=== PATIENT | male | born 1965 | race Caucasian/White ===

== ENCOUNTER → 2020-12-17 02:04 | Outpatient (CLI) | payer OTHER, SELFPAY ==
[2020-12-17 20:22] LABS: SARS-CoV-2 RNA PCR Negative
== END ==
PROVIDERS: PCP Family Medicine; Visit Provider Urology
DX: Z01.812 Encounter for preprocedural laboratory examination (principal); Z20.822 Contact with and (suspected) exposure to COVID-19
CPT/HCPCS: C9803; U0003; U0005

== ENCOUNTER 2020-12-17 08:38 | Outpatient (CLI) | payer OTHER, SELFPAY ==
--- NOTE | 2020-12-17 08:54 | ECG_ITS ---
Measurements Intervals [place] Rate: 84 P: 33 WA: 181 QRS: -4 QRSD: 149 T: 40 QT: 395 QTc: 467 Interpretive Statements SINUS RHYTHM ATRIAL PREMATURE COMPLEX RIGHT BUNDLE BRANCH BLOCK BASELINE WANDER- II, III, AVF ABNORMAL ECG Electronically Signed On 12-17-2020 10:09:54 CDT by Daniel Reza D.O.
[2020-12-17 09:25] LABS: Anion Gap 5 mmol/L (8-16); Blood Urea Nitrogen 11 mg/dL (9-20); Calcium 9.5 mg/dL (8.4-10.2); Carbon Dioxide 28 mmol/L (22-30); Chloride 104 mmol/L (98-107); Estimated Glomerular Filt Rate > 60; Glucose 220 mg/dL (75-110); Potassium 4.3 mmol/L (3.4-5.0); Sodium 137 mmol/L (137-145)
== END 2020-12-17 08:39 | disposition home or self-care (01) ==
PROVIDERS: PCP Family Medicine; Referring Provider Urology; Visit Provider Anesthesiology
DX: R31.0 Gross hematuria (principal); Z01.818 Encounter for other preprocedural examination; I45.10 Unspecified right bundle-branch block
CPT/HCPCS: 36415; 80048; 87086; 87088; 93005

== ENCOUNTER 2020-12-20 01:22 | Day surgery (SDC) | payer OTHER, SELFPAY ==
[2020-12-14 08:49] VITALS: BMI 45.6
--- NOTE | ~2020-12-20 | XR_ITS ---
EXAMINATION: XR retrograde pyelogram BI DATE: 12/20/2020 13:51 CDT INDICATION: Bilateral retrograde pyelogram TECHNIQUE: Multiple fluoroscopic images from a bilateral retrograde pyelogram are submitted for cesilia ashley FINDINGS: There is normal contrast opacification of the ureters and renal collecting systems bilatera lly. No definite filling defects or hydronephrosis identified. IMPRESSION: 1. Unremarkable bilateral retrograde pyelogram.. Correlate with real time procedural findings for de tails. Reviewed, dictated and finalized at location B. IMPRESSION: 1. Unremarkable bilateral retrograde pyelogram.. Correlate with real time proc edural findings for details.
--- NOTE | 2020-12-20 11:14 | WPDHPUPDATE1 ---
History and Physical Update Update Date/Time: 12/20/20 11:14 History and Physical has been reviewed, including an updated exam of the patient. There are NO changes in the patient's condition. Risks, benefits, and alternatives have been discussed and questions answered. Patient agrees to proceed with procedure.
[2020-12-20] MEDS: LACTATED RINGERS 1,000 ML 30 ML IV CONT (11:39)
--- NOTE | 2020-12-20 11:49 | WPDANESEPPF ---
Anes - Initial Pre Proc Eval Procedure: Operation Date: 12/20/20 13:30 Proposed Procedures p Cystoscopy, Bilateral Retrograde Pyelograms, Bilateral Ureteroscopy - Rip Mello MD Date/Time: 12/20/20 11:49 Surgeon: Rip Mello MD Pre Op Diagnosis: gross hematuria, overactive bladder Patient Data Age: 55 Gender: M Height: 5 ft 9 in Weight: 140 kg Allergies Allergy/AdvReac Type Severity Reaction Status Date / Time No Known Allergies Allergy Verified 12/14/20 08:51 Home Medications Medication Instructions Recorded Confirmed Type glimepiride 1 mg PO DAILY 12/14/20 12/14/20 History losartan 25 mg PO DAILY 12/14/20 12/14/20 History metformin 500 mg PO DAILY 12/14/20 12/14/20 History Laboratory Tests 12/20/20 11:46 POC Capillary Glucose Pending Patient hx anesthesia problems: none Family hx anesthesia problems: none [facility] Past Medical History Medical History (Updated 12/20/20 @ 11:46 by William Larry MD) Diabetes H/O prostate cancer Hypertension ÁNGEL (obstructive sleep apnea) Social History Social History Smoking packs per day: 2 Smoking cigarettes per day: 40.0 Years smoked: 40 Smoking pack-years: 80.00 Smoking status: Current every day smoker Tobacco type: cigarettes Substance use: never Living arrangements: with family Gender identity (if verbalized by the patient): Male Spiritual care concerns: No Anes - Eval Final PreProcedure Day of Procedure 12/20/20 11:49 Patient weight: morbidly obese Heart: regular rate and rhythm Lungs: clear to auscultation Airway: Mallampati scale class III Neurological: alert and oriented Last oral intake: >/= 8 hours ASA classification: IV Emergent: no Anesthetic plan: proceed Anesthesia type and monitoring: general LMA and standard monitoring Informed Consent: The patient's anesthetic plan and its attendant risks and benefits were discussed with the patient/family/POA. Questions were solicited and answers provided to the satisfaction of the patient/family/POA.
[2020-12-20 11:50] LABS: Glucose Point of Care 166 (65-105)
[2020-12-20 12:30] VITALS: BP 158/91; PULSE 65; RESP 14; TEMP 36.5; O2SAT 97
[2020-12-20] MEDS: ceFAZolin 3 GM/D5W 100 ML 100 ML IVPB (12:57)
[2020-12-20] MEDS: LIDOCAINE HCL 2% GEL UROJET 10 ML PKG MUCOUS MEM (13:21)
--- NOTE | 2020-12-20 13:42 | PM.PROC ---
Procedure Note - Detailed Date of procedure: 12/20/20 Pre-op diagnosis: gross hematuria, overactive bladder Post-op diagnosis: same (Bladder lesion medium located on left floor of the bladder) Procedure performed: Urethral dilation, cystoscopy, bilateral retrograde pyelograms, bilateral diagnostic ureteroscopy, transurethral resection of medium-sized bladder tumor area Description of procedure: Patient is taken the operative suite and correctly identified. Once anesthesia was obtained he was placed in dorsal lithotomy position and prepped and draped usual sterile fashion. Twenty-two [place] Islander scope inserted in the bladder. The prostate is missing secondary to a radical prostatectomy. Upon entering the bladder there is no clots noted. It was noted that he had some irregularity on the left floor of an area of a bowel 3-5 cm. He also had a small little nodule in the mid trigone area. At this point time [place] were inserted into the ureteral orifices. Pyelograms were performed. There were no discrete filling defects but he had persistent hematuria. At this point a guidewire was inserted into the right ureteral orifice in a flexible ureteral scope was inserted. The entire kidney was inspected. There were no tumors in the renal pelvis or calices. The ureter was without tumors. This was then performed on the left ureter. The entire left collecting system was also normal. We then went ahead and resected this abnormal area on the left floor and sent for analysis. As a separate specimen we sent the mid trigone lesion. The bases were fulgurated. There was good hemostasis. 2% viscous lidocaine was inserted urethra patient is taken recovery room in stable condition. I should state that the patient has had multiple cystoscopies by an outside urologist and was told that it was normal. He had refused a cystoscopy for diagnostic purposes in the office with me prior to this procedure. Anesthesia: GLMA Surgeon: Rip Mello MD Drains: No Packing: No Pathology: yes Complications: No immediate complications Condition: stable Disposition: PACU
[2020-12-20 13:45] VITALS: BP 131/92; PULSE 93; RESP 17; TEMP 36.2; O2SAT 98
[2020-12-20 14:00] VITALS: BP 146/80; PULSE 88; RESP 18; O2SAT 99
[2020-12-20 14:00] LABS: Glucose Point of Care 156 (65-105)
[2020-12-20 14:15] VITALS: BP 162/92; PULSE 87; RESP 14; O2SAT 96
[2020-12-20 14:30] VITALS: BP 148/82; PULSE 78
[2020-12-20] MEDS: oxyCODONE HCL (*CRX) 5 MG TAB IR PO (14:47)
[2020-12-20 15:00] VITALS: BP 145/69; PULSE 81
== END 2020-12-20 15:28 | disposition home or self-care (01) ==
PROVIDERS: PCP Family Medicine; Visit Provider Urology
PROC: (CPT 52352; principal; 2020-12-20 13:30)
DX: C67.0 Malignant neoplasm of trigone of bladder (principal); R31.0 Gross hematuria; N32.81 Overactive bladder; I10 Essential (primary) hypertension; E11.9 Type 2 diabetes mellitus without complications; G47.33 Obstructive sleep apnea (adult) (pediatric); Z85.46 Personal history of malignant neoplasm of prostate; Z79.84 Long term (current) use of oral hypoglycemic drugs; F17.210 Nicotine dependence, cigarettes, uncomplicated; E66.01 Morbid (severe) obesity due to excess calories; Z68.42 Body mass index [BMI] 45.0-49.9, adult
CPT/HCPCS: 52235; 36415; 74420; 80048; 82948; 87086; 87088; 88305; 93005; A9270; C1758; C1769; C9803; J0690; J1100; J2405; J2704; J3010; J7120; Q9966; U0003; U0005

== ENCOUNTER 2020-12-29 03:01 | Observation (INO) | payer OTHER, SELFPAY ==
[2020-12-29] VITALS (14 sets, daily range): BP systolic 125–158; BP diastolic 60–94; PULSE 84–107; RESP 14–22; TEMP 35.6–37; O2SAT 96–100; BMI 46.0
--- NOTE | ~2020-12-29 | US_ITS ---
EXAMINATION: US pelvic limited DATE: 12/29/2020 08:38 INDICATION: Hematuria. Bladder cancer. TECHNIQUE: Multiple grayscale and Doppler ultrasound images of the pelvis were obtained. COMPARISON: CT abdomen and pelvis 02/03/2020 FINDINGS: The bladder is decompressed by a Min catheter. IMPRESSION: 1. Bladder decompressed by a Min catheter. No hematoma identified. Reviewed, dictated and finalized at location A.
--- NOTE | 2020-12-29 03:25 | ADMGEN ---
This patient, Tim Holbrook, was admitted to Medical Room 346-01. Patient/family oriented to hospital policies and general routines including ID bracelet, bed and alarms, visiting hours, pain management, procedures, bathroom and other care routines, personal items, smoking policy, room service/diet, and visiting hours. Information on how to activate the Rapid Response Team has been discussed. Patient/Family are encouraged to report perceived risks to care and to ask questions if they do not understand what they are told or what they should do.
[2020-12-29] MEDS: SODIUM CHLORIDE 0.9% IV 1,000 ML 100 ML IV CONT ×2 (04:25→20:13)
[2020-12-29 07:42] LABS: Glucose Point of Care 270 (65-105)
--- NOTE | 2020-12-29 07:42 | PM.IMHP ---
H&P: HPI History of Present Illness Date/Time: 12/29/20 07:42 Chief Complaint: Gross hematuria with clot retention Narrative: Efraín is a pleasant 55-year-old male with history of prostate carcinoma and radical prostatectomy many years ago. He recently underwent a cystoscopy with transurethral resection of a bladder tumor whose path revealed a muscle invasive carcinoma. Patient presented to all the more ill with gross hematuria and clots. He was transferred here for further intervention. Patient currently has a Min catheter in with continuous bladder irrigation but is still having difficulty with some clots. Past medical history also significant for diabetes as well as hypertension and obstructive sleep apnea. Review of Systems Review of Systems: All systems reviewed & are unremarkable except as noted in HPI and below PMFSH Past Medical History Medical History Diabetes H/O prostate cancer Hypertension ÁNGEL (obstructive sleep apnea) Family History Family History Sibling Leukemia Mother Breast cancer Social History Social History Smoking packs per day: 2 Smoking cigarettes per day: 40.0 Years smoked: 43 Smoking pack-years: 86.00 Smoking status: Current every day smoker Tobacco type: cigarettes Alcohol intake: current Drinks per week: 1 Substance use: never Gender identity (if verbalized by the patient): Male Spiritual care concerns: No Meds Home Medications and Allergies Home Medications Medication Instructions Recorded Confirmed Type glimepiride 1 mg PO DAILY 12/14/20 12/29/20 History losartan 25 mg PO DAILY 12/14/20 12/29/20 History metformin 500 mg PO DAILY 12/14/20 12/29/20 History Coumadin 12/29/20 History Allergies Allergy/AdvReac Type Severity Reaction Status Date / Time No Known Allergies Allergy Verified 12/29/20 03:51 Vital Signs Vital Signs - 24 hr 12/29/20 04:00 Temperature 36.1 C L Pulse Rate 107 H Respiratory Rate 22 H Blood Pressure 152/94 H Pulse Oximetry 96 Exam Const: General: cooperative, tired appearing and uncomfortable HENMT: Head: normal to inspection Eyes: General: appearance normal, both eyes and all related structures Chest: Chest palpation & inspection: normal inspection of the chest Resp: Effort & Inspection: able to speak in complete sentences Cardio: Rate: regular rate GI: Inspection: normal to inspection Urinary Catheter: Urinary Catheter: urine with clots Assessment and Plan Assessment and plan (1) Gross hematuria: Code(s): R31.0 - Gross hematuria Status: Acute Assessment and Plan: Likely secondary to recent resection with increased activity. Will obtain ultrasound of bladder looking for residual clots but given difficulty with irrigating Min will proceed with cysto clot evacuation fulguration in the operating room. (2) Cancer of bladder: Code(s): C67.9 - Malignant neoplasm of bladder, unspecified Status: Acute Assessment and Plan: Newly diagnosed muscle invasive bladder carcinoma. Once recuperates from this acute episode will have him see Dr. Harrison for further management. Will likely need cystectomy. Given his mild peripheral edema with slightly labored breathing will have a medicine consult while he is admitted.
[2020-12-29 08:10] LABS: Hematocrit 42.7 % (42.0-52.0); Hemoglobin 14.3 g/dL (14.0-18.0); Mean Corpuscular HGB Conc 33.5 g/dl (32-36); Mean Corpuscular Hemoglobin 31.4 pg (26-34); Mean Corpuscular Volume 93.8 fl (80-100); Mean Platelet Volume 11.5 fl (7.4-10.4); Platelet Count Result 205 k/mm3 (150-375); Red Blood Count 4.55 M/mm3 (4.6-6.20); Red Cell Distribution Width 11.9 % (11.5-14.5); White Blood Count 18.8 K/mm3 (4.5-10.0)
[2020-12-29] MEDS: OXYBUTYNIN CHLORIDE 5 MG TABLET PO (09:00)
--- NOTE | 2020-12-29 10:24 | WPDANESEPPF ---
Anes - Initial Pre Proc Eval Procedure: Operation Date: 12/29/20 13:30 Proposed Procedures p Cystoscopy, Evacuation Bladder Clots - Rip Mello MD Date/Time: 12/29/20 10:24 Surgeon: Aric Knowles MD Pre Op Diagnosis: Gross hematuria Patient Data Age: 55 Gender: M Height: 5 ft 9 in Weight: 141.6 kg Last Vital Signs Temp 36.4 C 12/29/20 08:00 Pulse 104 H 12/29/20 08:00 Resp 20 12/29/20 08:00 BP 140/68 12/29/20 08:00 Pulse Ox 99 12/29/20 08:00 Allergies Allergy/AdvReac Type Severity Reaction Status Date / Time No Known Allergies Allergy Verified 12/29/20 03:51 Home Medications Medication Instructions Recorded Confirmed Type glimepiride 1 mg PO DAILY 12/14/20 12/29/20 History losartan 25 mg PO DAILY 12/14/20 12/29/20 History metformin 500 mg PO DAILY 12/14/20 12/29/20 History Coumadin 12/29/20 History Laboratory Tests 12/29/20 12/29/20 07:33 07:55 WBC 18.8 K/mm3 H K/mm3 (4.5-10.0) RBC 4.55 M/mm3 L M/mm3 (4.6-6.20) Hgb 14.3 g/dL g/dL (14.0-18.0) Hct 42.7 % % (42.0-52.0) MCV 93.8 fl fl (80-100) MCH 31.4 pg pg (26-34) MCHC 33.5 g/dl g/dl (32-36) RDW 11.9 % % (11.5-14.5) Plt Count 205 k/mm3 k/mm3 (150-375) MPV 11.5 fl H fl (7.4-10.4) POC Capillary Glucose 270 mg/dl H mg/dl (65-105) Patient hx anesthesia problems: none Family hx anesthesia problems: none PMFSH Past Medical History Medical History Diabetes H/O prostate cancer Hypertension ÁNGEL (obstructive sleep apnea) Family History Family History Sibling Leukemia Mother Breast cancer Social History Social History Smoking packs per day: 2 Smoking cigarettes per day: 40.0 Years smoked: 43 Smoking pack-years: 86.00 Smoking status: Current every day smoker Tobacco type: cigarettes Alcohol intake: current Drinks per week: 1 Substance use: never Gender identity (if verbalized by the patient): Male Spiritual care concerns: No Anes - Eval Final PreProcedure Day of Procedure 12/29/20 10:24 Patient weight: morbidly obese Heart: tachycardia Lungs: decreased breath sounds Airway: Mallampati scale Neurological: alert and oriented Last oral intake: >/= 8 hours ASA classification: III Emergent: no Anesthetic plan: proceed Anesthesia type and monitoring: general LMA and standard monitoring Informed Consent: The patient's anesthetic plan and its attendant risks and benefits were discussed with the patient/family/POA. Questions were solicited and answers provided to the satisfaction of the patient/family/POA.
[2020-12-29] MEDS: LACTATED RINGERS 1,000 ML 30 ML IV CONT (10:56)
[2020-12-29 11:02] LABS: Glucose Point of Care 230 (65-105)
--- NOTE | 2020-12-29 11:19 | WPDHPUPDATE1 ---
History and Physical Update Update Date/Time: 12/29/20 11:19 History and Physical has been reviewed, including an updated exam of the patient. There are NO changes in the patient's condition. Risks, benefits, and alternatives have been discussed and questions answered. Patient agrees to proceed with procedure. Proceed with cysto, clot evacuation and fulguration
--- NOTE | 2020-12-29 11:49 | SUR.PREOP ---
1149- Reviewed blood sugar of [address] Bailey. stated re check after procedure.
[2020-12-29] MEDS: ceFAZolin SODIUM 1 GM VIAL IV PUSH (11:54)
[2020-12-29] MEDS: ceFAZolin 2 GM/D5W 50 ML 2 GM/50 ML BAG IVPB (11:54)
--- NOTE | 2020-12-29 12:03 | SUR.OPER ---
pastor removed red urine with small clots scattered 12:03 arrived with CBI infusing
[2020-12-29] MEDS: LIDOCAINE HCL 2% GEL UROJET 10 ML PKG MUCOUS MEM (12:18)
--- NOTE | 2020-12-29 12:21 | P.OP_ITS ---
Procedure Note - Detailed Date of procedure: 12/29/20 Pre-op diagnosis: Gross hematuria Post-op diagnosis: same Procedure performed: Cystoscopy with clot evacuation (300cc) and fulguration Description of procedure: Patient is taken the operative suite and correctly identified. Once anesthesia was obtained was placed in dorsal lithotomy position and prepped draped usual sterile fashion. Twenty-two [place] scope was inserted in the bladder. There is no prostate as it has been prior removed due to carcinoma. Once entering the bladder has significant 1 of clot. We went ahead and irrigated all the clot out and least retrieved approximately 300 cc of it. Reinspection reveals no active bleeding. The prior resection area was actually dry. Given the recent bleed though we did use a large rollerball to fulgurate that area again. 2% viscous lidocaine was inserted urethra. Twenty Faroese [address] was placed inflated with 15 cc of sterile water. This was connected to continuous bladder irrigation. Patient is taken recovery stable condition. Will plan on leaving the Min catheter in until Saturday. Anesthesia: GLMA Surgeon: Rip Mello MD Estimated blood loss (mL): 0 Drains: Yes Packing: No Pathology: none sent Complications: No immediate complications Condition: stable Disposition: PACU
[2020-12-29 13:36] LABS: Glucose Point of Care 215 (65-105)
[2020-12-29 14:47] LABS: Glucose Point of Care 206 (65-105)
--- NOTE | 2020-12-29 15:51 | PM.IMCN ---
Assessment and Plan Assessment and plan (1) Gross hematuria: Code(s): R31.0 - Gross hematuria Status: Acute Assessment and Plan: Urology has seen the patient. And he is gone for cystoscopy. He has a CBI at this time. His urine is clear at this time. He has no complaints of any discomfort and no tenderness. The patient has multiple questions for the urologist. Patient is wondering when he could return to work. According to the urology notes the patient will have a Min catheter until Saturday. (2) Cancer of bladder: Code(s): C67.9 - Malignant neoplasm of bladder, unspecified Status: Acute Assessment and Plan: The patient is questioning whether he will have any further treatment at this time. (3) Diabetes: Code(s): E11.9 - Type 2 diabetes mellitus without complications Status: Chronic Assessment and Plan: Accu-Cheks AC and HS. Continue with his home medications. Check A1c. Patient's blood sugars over 200 today he states that is usually less than that. Continue with metformin but continue to monitor his basic metabolic panel. (4) Hypertension: Code(s): I10 - Essential (primary) hypertension Status: Chronic Assessment and Plan: Continue with losartan and continue to monitor daily BMPs. (5) ÁNGEL (obstructive sleep apnea): Code(s): G47.33 - Obstructive sleep apnea (adult) (pediatric) Status: Chronic Assessment and Plan: Continue with CPAP HPI Data of Consult Consult date: 12/29/20 Requesting Physician: rAic Knowles MD Primary Care Provider: Barrett Colón, Consult Narrative Narrative: Tim Holbrook is a 55 year old male Who has a history of prostate cancer and had a prostatectomy approximately 15 years ago. The patient had no further treatment. The patient stated that he has been having some gross hematuria and was recently diagnosed with bladder cancer. According to the records it looks like the hematuria was 1st discovered to be a problem September 2019. It was an intermittent problem. It looks like the patient's all Dr. Mello on 11/30/2020. The patient tells me that he did have a cysto with a biopsy, bilateral retrogrades, and bilateral ureteroscopy. 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 The patient stated that he was having large amount of bloody urine last night and called his urologist office. He was instructed to follow-up in the office if he was able to do so the next day. However the patient was fearful because of all the low large amount of blood that he was urinating. He also stated that he was having difficulty urinating at times. According to Dr. Funmilayo baker notes the patient underwent a cystoscopy with transurethral resection of a bladder tumor who has path revealed a muscle invasive carcinoma. He was transferred here [facility]. Patient had a CBI. Today the patient underwent a cystoscopy with clot evacuation and fulguration approximately [address] Funmilayo baker notes. The hospitalist group was consulted for medical management. The patient is admitted to observation however in the urology note it was noted that the patient most likely will have a Min catheter until Saturday. Date of service 12/29/2020. Review of Systems Review of Systems: All systems reviewed & are unremarkable except as noted in HPI and below Constitutional: Constitutional: Reports as per HPI and Reports no additional constitutional complaints Eyes: Eyes: Reports as per HPI and Reports no additional eye complaints ENT: Reports system reviewed and no additional complaints, except as documented and Reports Normal hearing present Cardiovascular: Cardiovascular: Reports no additional cardiovascular complaints Respiratory: Respiratory: Reports no additional respiratory complaints a
[2020-12-29 17:16] LABS: Glucose Point of Care 236 (65-105)
[2020-12-29] MEDS: INSULIN ASPART (*BKC) 100 UNITS/ML SUB-Q (17:24)
[2020-12-29 23:02] LABS: Glucose Point of Care 260 (65-105)
[2020-12-30 03:45] VITALS: PULSE 86; RESP 15; O2SAT 97
[2020-12-30 05:19] VITALS: BP 156/83; PULSE 86; RESP 14; TEMP 36.2; O2SAT 97
[2020-12-30] MEDS: SODIUM CHLORIDE 0.9% IV 1,000 ML 100 ML IV CONT (05:48)
[2020-12-30 05:50] LABS: Basophils Absolute Auto 0.1 K/mm3 (0.0-0.1); Basophils Percent Auto 0.5 % (0.2-1.2); Eosinophils Absolute Auto 0.3 K/mm3 (0-0.3); Eosinophils Percent Auto 1.9 % (0-4.4); Hematocrit 40.3 % (42.0-52.0); Hemoglobin 13.3 g/dL (14.0-18.0); Immature Granulocyte Absolute 0.14 K/mm3 (0.00-0.031); Lymphocytes Absolute Auto 2.84 K/mm3 (0.9-3.2); Lymphocytes Percent Auto 19.7 % (18.3-44.2); Mean Corpuscular Hemoglobin 31.9 pg (26-34); Mean Corpuscular Volume 96.6 fl (80-100); Mean Platelet Volume 11.2 fl (7.4-10.4); Monocytes Absolute Auto 1.4 K/mm3 (0.1-0.6); Neutrophils Absolute Auto 9.6 K/mm3 (1.3-6.7); Neutrophils Percent Auto 66.9 % (45.5-73.1); Platelet Count Result 170 k/mm3 (150-375); Red Blood Count 4.17 M/mm3 (4.6-6.20); Red Cell Distribution Width 12.1 % (11.5-14.5); White Blood Count 14.4 K/mm3 (4.5-10.0)
[2020-12-30 06:05] LABS: Alanine Aminotransferase 26 U/L (4-50); Albumin Level 3.4 g/dL (3.5-5.1); Alkaline Phosphatase 48 U/L (38-126); Anion Gap 2 mmol/L (8-16); Aspartate Amino Transferase 25 U/L (17-59); Blood Urea Nitrogen 7 mg/dL (9-20); Calcium 8.3 mg/dL (8.4-10.2); Carbon Dioxide 31 mmol/L (22-30); Chloride 100 mmol/L (98-107); Estimated CRCL calculation 162 ml/min; Estimated Glomerular Filt Rate > 60; Glucose 191 mg/dL (75-110); Lactate Dehydrogenase 304 U/L (313-618); Magnesium 1.6 mg/dL (1.6-2.3); Potassium 4.3 mmol/L (3.4-5.0); Sodium 133 mmol/L (137-145)
[2020-12-30 06:30] LABS: Hemoglobin A1C 8.4 % (<5.7)
[2020-12-30 07:50] LABS: Glucose Point of Care 213 (65-105)
[2020-12-30 08:00] VITALS: BP 134/75; PULSE 95; RESP 18; TEMP 36.3; O2SAT 97
[2020-12-30] MEDS: INSULIN ASPART (*BKC) 100 UNITS/ML SUB-Q ×2 (08:11→11:47)
[2020-12-30] MEDS: GLIMEPIRIDE 1 MG TABLET PO (08:14)
[2020-12-30] MEDS: metFORMIN HCL 500 MG TABLET PO (08:14)
[2020-12-30] MEDS: LOSARTAN POTASSIUM 25 MG TABLET PO (08:14)
--- NOTE | 2020-12-30 11:14 | PM.IMPN ---
Progress Note: A&P Assessment and Plan (1) Gross hematuria: Code(s): R31.0 - Gross hematuria Status: Acute Assessment and Plan: Appears to have resolved. Possibly discharge today per nursing. CBI on hold with clear urine output currently. Cystoscopy with clot evacuation on 12/29. Further care per primary service F/u with Urology per their instructions (2) Cancer of bladder: Code(s): C67.9 - Malignant neoplasm of bladder, unspecified Status: Acute Assessment and Plan: Appears to be recent diagnosis based on pathology results from 12/20 Further care per primary service (3) Diabetes: Code(s): E11.9 - Type 2 diabetes mellitus without complications Status: Chronic Assessment and Plan: A1c 8.4. He notes his BGL is usually in 160s at home Accuchecks ACHS, hypoglycemia protocol, correctional insulin, diabetic diet Continue home meds We discussed checking sugars regularly at home and f/u with PCP Will likely need adjustments in meds per PCP (4) Hypertension: Code(s): I10 - Essential (primary) hypertension Status: Chronic Assessment and Plan: BP 130s sys Continue home losartan (5) ÁNGEL (obstructive sleep apnea): Code(s): G47.33 - Obstructive sleep apnea (adult) (pediatric) Status: Chronic Assessment and Plan: Continue with CPAP Additional Plan Thank you for allowing the Hospitalist team to care for this patient during their stay. We will continue to follow with you. Okay for discharge from medical standpoint. Please call with any questions. Subjective Date/time seen: 12/30/20 11:14 This is a Hospitalist Consult Progress Note Interval history: Patient is a 55 yo M with history of DMII, HTN, h/o of prostate CA s/p prostatectomy, and urothelial Ca who is here for gross hematuria s/p cystoscopy with clot evacuation and fulguration (12/29) per Dr. Mello. Hospitalist service consulted for medical management of comorbid conditions. Patient is feeling great today. He is hoping for discharge today. No complaints today. Noticed one tiny clot in Min, but otherwise has not noticed any blood/clots. Denies f/c/s, cp/palpitations, sob/cough, n/v/d/c, abd pain, changes in BMs, issues with Min site, calf pain/swelling. Review of Systems Review of Systems: All systems reviewed & are unremarkable except as noted in HPI and below Exam Narrative: Exam Narrative: General: Patient resting supine in bed with head raised in no acute distress. HEENT: Normocephalic, EOMI, oral mucosa moist. Cardiovascular: Rate and rhythm are regular. No notable murmur, rub, or gallop. Respiratory: Lungs clear to auscultation anterolateral lung keene. Non-labored breathing Abdomen: Soft, obese abdomen, non-tender, non-distended, bowel sounds present. : Min intact, CBI paused. Clear straw colored urine without clots or blood appreciated. Extremities: Peripheral pulses intact. No edema. NTTP b/l calves Neuro: No focal neurological deficits. Speech is clear. Objective Data Vital Signs Vital Signs: Last Vital Signs Temp 97.3 F L 12/30/20 08:00 Pulse 95 12/30/20 08:00 Resp 18 12/30/20 08:00 BP 134/75 12/30/20 08:00 Pulse Ox 97 12/30/20 08:00 Intake/Output Intake/Output: Intake & Output 12/27/20 12/28/20 12/29/20 12/30/20 23:59 23:59 23:59 23:59 Intake Total 6560 1620 Output Total 7550 3700 Balance -990 -2220 Meds/Results Medications: Active Medications Generic Name Dose Route Start Last Admin Trade Name Freq PRN Reason Stop Dose Admin Dextrose 12.5 gm 12/29/20 15:08 Dextrose 50% 25 Gm/50 Ml Syringe IV PUSH PRN PRN Hypoglycemia Protocol Glimepiride 1 mg 12/30/20 08:00 12/30/20 08:14 Glimepiride 1 M
[2020-12-30 11:54] LABS: Glucose Point of Care 211 (65-105)
--- NOTE | 2020-12-30 11:59 | WPDUROPN2 ---
Progress Note: A&P Assessment and Plan (1) Gross hematuria: Code(s): R31.0 - Gross hematuria Status: Acute Assessment and Plan: Resolved at this time. Will discharge home with Min catheter and have that removed on Saturday morning. Tramadol and Cipro sent to patient's pharmacy. (2) Cancer of bladder: Code(s): C67.9 - Malignant neoplasm of bladder, unspecified Status: Acute Assessment and Plan: Will schedule appointment with Dr. Harrison as an outpatient for further management. 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 He had 300 cc of clot removed from his bladder. There was no discrete active bleeding but we did fulgurate the base of the prior resection. His urine is clear with out any CBI at this time. Will go ahead and discharge home later today. Review of Systems Review of Systems: All systems reviewed & are unremarkable except as noted in HPI and below Exam Const: General: cooperative and comfortable Chest: Chest palpation & inspection: normal inspection of the chest Resp: Effort & Inspection: normal respiratory effort Cardio: Rate: regular rate Objective Data Vital Signs Vital Signs: Vital Signs - 24 hr 12/29/20 12:32 12/29/20 12:45 12/29/20 13:00 Temperature 36.4 C L Pulse Rate 97 92 94 Respiratory Rate 20 20 18 Blood Pressure 151/76 H 158/78 H 155/92 H Pulse Oximetry 98 100 100 12/29/20 13:15 12/29/20 13:30 12/29/20 13:45 Temperature 36.4 C 35.6 C L Pulse Rate 90 91 89 Respiratory Rate 18 18 20 Blood Pressure 132/87 139/83 145/60 H Pulse Oximetry 97 96 100 12/29/20 14:00 12/29/20 14:30 12/29/20 15:30 Temperature 36.0 C L 36.2 C L 36.1 C L Pulse Rate 88 93 102 H Respiratory Rate 20 20 20 Blood Pressure 128/80 125/68 149/85 H Pulse Oximetry 99 96 96 12/29/20 20:00 12/29/20 23:20 12/30/20 03:45 Temperature 36.3 C L Pulse Rate 86 84 86 Respiratory Rate 14 17 15 Blood Pressure 152/85 H Pulse Oximetry 96 96 97 12/30/20 05:19 12/30/20 08:00 Temperature 36.2 C L 36.3 C L Pulse Rate 86 95 Respiratory Rate 14 18 Blood Pressure 156/83 H 134/75 Pulse Oximetry 97 97 Intake/Output Intake/Output: Intake & Output 12/27/20 12/28/20 12/29/20 12/30/20 23:59 23:59 23:59 23:59 Intake Total 6560 1620 Output Total 7585 3700 Balance -990 -1460 Meds/Results Medications: Active Medications Generic Name Dose Route Start Last Admin Trade Name Freq PRN Reason Stop Dose Admin Dextrose 12.5 gm 12/29/20 15:08 Dextrose 50% 25 Gm/50 Ml Syringe IV PUSH PRN PRN Hypoglycemia Protocol Glimepiride 1 mg 12/30/20 08:00 12/30/20 08:14 Glimepiride 1 Mg Tablet PO 1 mg DAILY@0800 DELORES Administration Glucagon 1 mg 12/29/20 15:08 Glucagon For Inj 1 Mg Vial IM PRN PRN Hypoglycemia Protocol Glucose 15 gm 12/29/20 15:08 Glucose Oral Gel 15 Gm Of Glucse In 37.5 Gm Tube PO PRN PRN Hypoglycemia Protocol Sodium Chloride 1,000 mls @ 100 mls/hr 12/29/20 03:55 12/30/20 05:48 Normal Saline Iv IV CONT 100 mls/hr .Q10H DELORES Administration Dextrose 1,000 mls @ 100 mls/hr 12/29/20 15:08 Dextrose 5% 1,000 Ml IVPB PRN PRN Hypoglycemia Protocol Insulin Aspart 2 - 5 units 12/29/20 17:00 12/30/20 11:47 Insulin Aspart (*Bkc) 100 Units/Ml SUB-Q 2 units TIDWM DELORES Administration Protocol Losartan Potassium 25 mg 12/30/20 09:00 12/30/20 08:14 Losartan Potassium 25 Mg Tablet PO 25 mg DAILY DELORES Administration Metformin HCl 500 mg 12/30/20 09:00 12/30/20 08:14 Metformin Hcl 500 Mg Tablet PO 500 mg DAILY DELORES Administration Radiology Results: ITS Impressions Pelvis Ultrasound 12/29/20 08:44 IMPRESSION: 1.
--- NOTE | 2020-12-30 12:13 | PM.DS ---
DS: Admitting Diagnosis Admitting Diagnosis Admitting Diagnosis: gross hematuria with clots DS: Discharge Diagnosis Discharge Diagnosis (1) Gross hematuria: Code(s): R31.0 - Gross hematuria Status: Acute (2) Cancer of bladder: Code(s): C67.9 - Malignant neoplasm of bladder, unspecified Status: Acute DS: Summary Hospital Course Reason for hospitalization: gross hematuria with clot retention Hospital Course: patient was admitted with gross hematuria with clot retention. He was taken to the operating room where 300 cc of clot was evacuated and his bladder was fulgurated. Patient did well postoperatively with clear urine. He will be discharged home with Min catheter and have it removed on Saturday. I will also set up to see Dr. jack regarding the muscle invasive bladder carcinoma. Status at Discharge Functional status at discharge: independent ambulation Time Spent with Patient Time attestation: Total time spent providing and/or coordinating discharge services: Exam Const: General: cooperative and comfortable Eyes: General: appearance normal, both eyes and all related structures Chest: Chest palpation & inspection: normal inspection of the chest Resp: Effort & Inspection: normal respiratory effort Cardio: Rate: regular rate Rhythm: regular rhythm DS: Data Data Completed and Pending Labs on day of discharge: Labs from last 24 hours 12/30/20 12/30/20 12/30/20 11:35 07:34 05:33 WBC RBC Hgb Hct MCV MCH MCHC RDW Plt Count MPV Immature Gran % (Auto) Neut % (Auto) Lymph % (Auto) [place] % (Auto) Eos % (Auto) Baso % (Auto) Lymph # (Auto) [place] # (Auto) Eos # (Auto) Baso # (Auto) Abs Immat Gran (auto) Absolute Neuts (auto) Absolute Nucleated RBC Nucleated RBC % Sodium Potassium Chloride Carbon Dioxide Anion Gap BUN Creatinine Estim Creat Clear Calc Estimated GFR Glucose POC Capillary Glucose 211 H 213 H Hemoglobin A1c 8.4 H Calcium Magnesium Total Bilirubin AST ALT Alkaline Phosphatase Lactate Dehydrogenase Total Protein Albumin 12/30/20 12/30/20 12/29/20 05:33 05:33 20:21 WBC 14.4 H RBC 4.17 L Hgb 13.3 L Hct 40.3 L MCV 96.6 MCH 31.9 MCHC 33.0 RDW 12.1 Plt Count 170 MPV 11.2 H Immature Gran % (Auto) 1.0 H Neut % (Auto) 66.9 Lymph % (Auto) 19.7 [place] % (Auto) 10.0 H Eos % (Auto) 1.9 Baso % (Auto) 0.5 Lymph # (Auto) 2.84 [place] # (Auto) 1.4 H Eos # (Auto) 0.3 Baso # (Auto) 0.1 Abs Immat Gran (auto) 0.14 H Absolute Neuts (auto) 9.6 H Absolute Nucleated RBC 0.0 Nucleated RBC % 0.0 Sodium 133 L Potassium 4.3 Chloride 100 Carbon Dioxide 31 H Anion Gap 2 L BUN 7 L Creatinine 0.60 L Estim Creat Clear Calc 162 Estimated GFR > 60 Glucose 191 H POC Capillary Glucose 260 H Hemoglobin A1c Calcium 8.3 L Magnesium 1.6 Total Bilirubin 1.0 AST 25 ALT 26 Alkaline Phosphatase 48 Lactate Dehydrogenase 304 L Total Protein 6.0 L Albumin 3.4 L 12/29/20 12/29/20 12/29/20 17:11 14:45 12:54 WBC RBC Hgb Hct MCV MCH MCHC RDW Plt Count MPV Immature Gran % (Auto) Neut % (Auto) Lymph % (Auto) [place] % (Auto) Eos % (Auto) Baso % (Auto) Lymph # (Auto) [place] # (Auto) Eos # (Auto) Baso # (Auto) Abs Immat Gran (auto) Absolute Neuts (auto) Absolute Nucleated RBC Nucleated RBC % Sodium Potassium Chloride Carbon Dioxide Anion Gap BUN Creatinine Estim Creat Clear Calc Estimated GFR Glucose POC Capillary Glucose 236 H 206 H 215 H Hemoglobin A1c Calcium Magnesium Total Bilirubin AST ALT Alkaline Phosphatase Lactate Dehydrogenase Total Protein Albumin
== END 2020-12-30 13:30 | disposition home or self-care (01) ==
PROVIDERS: Nurse Practitioner; Admitting Provider Urology; PCP Family Medicine; Referring Provider Urology; Visit Provider Urology
PROC: 0TCB8ZZ Extirpation of Matter from Bladder, Via Natural or Artificial Opening Endoscopic (ICD-10-PCS; CPT 52001; principal; 2020-12-29 13:30)
DX: R31.0 Gross hematuria (principal); C67.9 Malignant neoplasm of bladder, unspecified; N32.89 Other specified disorders of bladder; E11.9 Type 2 diabetes mellitus without complications; E66.01 Morbid (severe) obesity due to excess calories; F17.210 Nicotine dependence, cigarettes, uncomplicated; G47.33 Obstructive sleep apnea (adult) (pediatric); I10 Essential (primary) hypertension; Z85.46 Personal history of malignant neoplasm of prostate; Z90.79 Acquired absence of other genital organ(s); Z68.42 Body mass index [BMI] 45.0-49.9, adult; Z79.4 Long term (current) use of insulin
CPT/HCPCS: 52234; 36415; 76857; 80053; 82948; 83036; 83615; 83735; 85025; 85027; 96360; 96361; 96365; A9270; G0378; J0690; J1100; J1815; J2250; J2405; J2704; J3010; J7030; J7120